=== PATIENT | female | born 1960 | race Caucasian/White ===

== ENCOUNTER → 2023-05-24 16:35 | Outpatient (REF) | payer BC, SELFPAY | LOC: WDC 16:35 | PROVIDERS: ATTENDING PHYSICIAN Physician Assistant Medical | DX: Z12.31 Encounter for screening mammogram for malignant neoplasm of breast (principal) | CPT/HCPCS: 77063; 77067 ==

== ENCOUNTER → 2023-08-17 14:49 | Outpatient (REF) | payer BC, SELFPAY | LOC: WDC 14:49 | PROVIDERS: ATTENDING PHYSICIAN Physician Assistant Medical | DX: R92.2 Inconclusive mammogram (principal) | CPT/HCPCS: 76641 ==

== ENCOUNTER → 2023-11-25 08:18 | Outpatient (REF) | payer BC, SELFPAY ==
[2023-11-25 10:14] LABS: % Basophils 1.2 % (0-2); % Eosinophils 8.4 % (0-6); % Immature Granulocytes 0.2 % (0-0.5); % Lymphocytes 32.7 % (20.5-51.1); % Monocytes 8.7 % (1.7-9.3); % Neutrophils 48.8 % (42.2-75.2); Absolute Basophils 0.1 10^3/uL (0-0.2); Absolute Eosinophils 0.5 10^3/uL (0-0.7); Absolute Lymphocytes 2.1 10^3/uL (1.2-3.4); Absolute Monocytes 0.6 10^3/uL (0.1-0.6); Absolute Neutrophils 3.2 10^3/uL (1.4-6.5); Hematocrit 41.8 % (37.0-47.0); Hemoglobin 13.8 g/dL (12.0-16.0); Mean Corpuscular Hgb 29.2 pg (27.0-31.0); Mean Corpuscular Volume 88.4 fL (81.0-99.0); Mean Platelet Volume 10.7 fL (7.4-10.4); Nucleated Red Blood Cells % 0 %; Platelet Count 303 10^3/uL (130-400); Red Blood Cell Count 4.73 10^6/uL (4.20-5.40); Red Cell Dist. Width 13.5 % (11.5-14.5); White Blood Cell Count 6.5 10^3/uL (4.8-10.8)
[2023-11-25 10:46] LABS: Glycohemoglobin (HgbA1c) 6.1 % (4.0-5.6)
[2023-11-25 10:52] LABS: TSH Reflex To Free T4 1.11 uIU/ml (0.47-4.68)
[2023-11-25 10:55] LABS: ALT (SGPT) 20 U/L (0-35); AST (SGOT) 24 U/L (14-36); Alkaline Phosphatase 63 U/L (38-126); Blood Urea Nitrogen 22 mg/dl (7-17); Calcium 10.5 mg/dl (8.4-10.2); Carbon Dioxide 28 mmol/L (22-30); Chloride 103 mmol/L (98-107); Glucose 104 mg/dl (70-99); HDL Cholesterol 68 mg/dl; LDL Cholesterol, Calculated 121 mg/dl; Potassium 4.8 mmol/L (3.5-5.1); Sodium 140 mmol/L (135-145); Total Bilirubin 0.6 mg/dl (0.2-1.3); Total Cholesterol 209 mg/dl (50-199); Total Protein 6.5 g/dl (6.3-8.2); Triglyceride 102 mg/dl (10-149); Very Low Density Lipoprotein 20 mg/dl (0-30); eGFR > 60.00
== END ==
LOC: OLAB 08:18
PROVIDERS: ATTENDING PHYSICIAN Physician Assistant Medical
DX: E78.2 Mixed hyperlipidemia (principal); I10 Essential (primary) hypertension; R73.03 Prediabetes; K21.9 Gastro-esophageal reflux disease without esophagitis
CPT/HCPCS: 36415; 80053; 80061; 83036; 84443; 85025

== ENCOUNTER 2024-05-06 22:19 | Emergency (ER) | payer BC, SELFPAY ==
[2024-05-06 22:22] VITALS: BP 164/106
[2024-05-07] MEDS: LET TOPICAL ANESTHETIC GEL 3 ML TOPICAL (00:53)
--- NOTE | 2024-05-07 01:23 | ED.SKININJ ---
HPI-Injury
General
Chief Complaint: Skin Surface Trauma
Source: patient and spouse
Exam Limitations: none
Time Seen by Provider: 05/07/24 01:03
Nursing documentation reviewed up to this point in time: agreed with
History of Present Illness-Injury
Initial Injury comments:
This is a 63-year-old woman with history of hypertension, hyperlipidemia, impaired fasting glucose who presents with laceration distal aspect of her left index digit which occurred tonight inadvertently while she was cutting fabric. She is
right-hand dominant.
She admits to moderate bleeding initially which has subsided promptly with local pressure. She denies weakness nor numbness.
Last Tdap 2017.
Past History
Past History
ED Past Medical History: Asthma, GERD, HTN, Hypercholesterolemia and Other (Impaired fasting glucose); Negative CAD, Cancer, IDDM or NIDDM
ED Past Surgical History: ; Negative Cardiac
Social History
Tobacco: Non-smoker
Personal:
Living: with family
Employment: Employed
Family History
Family History: Other (Noncontributory)
Skin Exam
Laceration
Left Lateral Distal Second Finger:
Length in cm: 1.5
Orientation: vertical
Type of Laceration: simple
Any active bleeding?: no active bleeding
Distal skin color and temperature: normal-warm & good color
Normal distal neurovascular exam: Yes
Range of motion: full
Phy Exam
Physical Exam
Physical Exam:
PHYSICAL EXAMINATION:
General: 63-year-old woman appears her stated age, bright and alert, pleasant, appears in no acute distress. is accompanying.
Neuro: alert and oriented. no focal neurological deficits
Psychiatric: well kept. interactive and cooperative
Musculoskeletal: [1.5 cm vertical slightly curved laceration distal lateral aspect of the left index digit. Wound extends to the lateral cuticle edge but does not involve the nail nor nailbed. Wound is subcutaneous in
depth. No tendon nor vasculature involvement. Sensation and strength intact. Rapid capillary refill.]
Course
Orders/Labs/Results
Orders:
Orders
05/07/24 00:50
Lidocaine/Epinephrine/Tetracai [Let Topical Anesthetic Gel] 3 ml .ROUTE .STK-MED ONE
05/07/24 00:53
Lidocaine/Epinephrine/Tetracai [Let Topical Anesthetic Gel] 3 ml TOPICAL NOW STA
05/07/24 01:20
Aluminium Finger Splint Left ONCE
Tetanus/Diphth/Acelpertussis [Adacel] 0.5 ml IM .ONCE ONE
Vital Signs
Initial and Last Documented VS:
Initial Vital Signs
Temp Pulse Resp BP Pulse Ox
98.1 F 84 20 164/106 97
05/06/24 22:22 05/06/24 22:22 05/06/24 22:22 05/06/24 22:22 05/06/24 22:22
Last Documented Vital Signs
Temp Pulse Resp BP Pulse Ox
98.1 F 84 20 164/106 97
05/06/24 22:22 05/06/24 22:22 05/06/24 22:22 05/06/24 22:22 05/06/24 22:22
Procedures
Laceration Closure
Left Lateral Distal Second Finger:
Status of Wound: clean
Size of Wound in cm: 1.5
Description of Wound Edges: sharp
Preparation: cleaned with saline
Anesthesia: Topical-LET
Revision/Debridement: routine- no revision and irrigate-direct pressure
Wound exploration: explored to base- no FB and no tendon involvement
Type of Closure: Dermabond-skin glue
Additional information:
Steri-Strip applied over wound glue.
AlumaFoam finger splint
MDM/Problems Addressed
Differential Diagnosis Includes:
Patient presents with laceration left index digit, occurring at home while cutting fabric with a machine stripper cutter.
Wound is subcu in depth without involvement in vasculature nor tendon involvement. Wound edges are well-approximated.
Wound explored to base. No foreign body. No indication for radiologic studies.
Will require Dermabond wound glue repair.
Aluminum finger splint for 3 to 4 days for wound protection/protection from flexion.
Wound care instructions discussed.
Will update Tdap.
Will place on short course of Keflex for infection prevention.
Follow-up with PCP for wound check as needed.
Chronic conditions affecting care: DM (Prediabetes)
*Pulse Oximetry
Patient hypoxic: no
*Critical Care Note
Total Time (30-74mins, 75-104mins- exclusive of procedures): Not Applicable
ED Attending Note
-
Portions of this chart may have been created with voice recognition software.� Occasional wrong word or��sound alike� substitutions may have occurred due to the inherent limitations of voice recognition software.
Discharge Plan
Departure
Patient Disposition: Home (Routine Discharge)
Date of Disposition: 05/07/24
Time of Disposition: 01:24
Patient with high blood pressure during this ER visit?: No
Condition: Good
Discharge Problem:
Laceration of left index finger
Instructions: Laceration Repair With Glue (DC)
Prescriptions:
New
cephalexin 500 mg capsule
500 mg PO TID Qty: 12 0RF
No Action
Albuterol
2 puff inhalation PRN (Reason: breathing)
verapamil [Calan SR] 120 MG tablet extended release
120 mg PO DAILY
aspirin 81 MG tablet,delayed release (DR/EC)
81 mg PO DAILY
fluticasone propion-salmeterol 1 DISK blister with device
1 puff inhalation BID
omeprazole magnesium [Prilosec OTC] 20 MG tablet,delayed release (DR/EC)
20 mg PO HS
Zocor:
5 mg PO DAILY
Referrals:
Mandie Rodriguez PA [Family Provider] - As needed
Interventions
Interventions:
*Risk Screen - Suicide Last Done: 05/07/24 00:52
*General Assessment Last Done: 05/06/24 22:22
*Neglect/Abuse Screening Last Done: 05/07/24 00:52
*ED COVID-19 Vaccine History Last Done: 05/07/24 00:52
ED-Skin Assessment Last Done: 05/07/24 00:52
Discharge Date and Time
Print Language: [id number]
[2024-05-07 01:26] VITALS: BP 139/82
[2024-05-07] MEDS: KEFLEX 500 MG PO (01:43)
[2024-05-07] MEDS: ADACEL 0.5 ML IM (01:44)
== END 2024-05-07 01:50 | disposition home or self-care (01) ==
LOC: EMR 22:19
PROVIDERS: EMERGENCY PHYSICIAN Emergency Medicine; FAMILY PHYSICIAN Physician Assistant Medical
DX: S61.211A Laceration without foreign body of left index finger without damage to nail, initial encounter (principal); W45.8XXA Other foreign body or object entering through skin, initial encounter; Z23 Encounter for immunization; I10 Essential (primary) hypertension; E78.00 Pure hypercholesterolemia, unspecified; J45.909 Unspecified asthma, uncomplicated; K21.9 Gastro-esophageal reflux disease without esophagitis
CPT/HCPCS: 99282; 29130; 90471; 90715

== ENCOUNTER → 2024-06-27 16:42 | Outpatient (REF) | payer BC, SELFPAY ==
[2024-06-27 09:10] LABS: ALT (SGPT) 21 U/L (0-35); AST (SGOT) 22 U/L (14-36); Albumin 4.1 g/dl (3.5-5.0); Alkaline Phosphatase 70 U/L (38-126); Blood Urea Nitrogen 16 mg/dl (7-17); Calcium 10.1 mg/dl (8.4-10.2); Carbon Dioxide 29 mmol/L (22-30); Chloride 104 mmol/L (98-107); Glucose 99 mg/dl (70-99); HDL Cholesterol 65 mg/dl; LDL Cholesterol, Calculated 108 mg/dl; Potassium 4.4 mmol/L (3.5-5.1); Sodium 142 mmol/L (135-145); Total Bilirubin 0.8 mg/dl (0.2-1.3); Total Cholesterol 194 mg/dl (50-199); Total Protein 6.5 g/dl (6.3-8.2); Triglyceride 107 mg/dl (10-149); Very Low Density Lipoprotein 21 mg/dl (0-30); eGFR > 60.00
== END ==
LOC: WDC 16:42
PROVIDERS: ATTENDING PHYSICIAN Physician Assistant Medical
DX: Z12.31 Encounter for screening mammogram for malignant neoplasm of breast (principal); Z00.01 Encounter for general adult medical examination with abnormal findings; I10 Essential (primary) hypertension; E78.2 Mixed hyperlipidemia; R73.03 Prediabetes
CPT/HCPCS: 36415; 77063; 77067; 80053; 80061; 83036

== ENCOUNTER → 2024-11-21 14:59 | Outpatient (REF) | payer BC, SELFPAY | LOC: WDC 14:59 | PROVIDERS: ATTENDING PHYSICIAN Physician Assistant Medical | DX: R92.30 Dense breasts, unspecified (principal) | CPT/HCPCS: 76641 ==

== ENCOUNTER → 2025-02-17 07:38 | Outpatient (REF) | payer BC, SELFPAY ==
[2025-02-17 08:30] LABS: Hematocrit 42.0 % (37.0-47.0); Hemoglobin 14.0 g/dL (12.0-16.0); Mean Corp Hgb Conc. 33.3 g/dL (33.0-37.0); Mean Corpuscular Volume 89.4 fL (81.0-99.0); Nucleated Red Blood Cells % 0 %; Platelet Count 279 10^3/uL (130-400); Red Cell Dist. Width 13.2 % (11.5-14.5)
[2025-02-17 09:00] LABS: ALT (SGPT) 18 U/L (0-35); AST (SGOT) 20 U/L (14-36); Albumin 3.9 g/dl (3.5-5.0); Alkaline Phosphatase 60 U/L (38-126); Blood Urea Nitrogen 11 mg/dl (7-17); Calcium 9.8 mg/dl (8.4-10.2); Carbon Dioxide 31 mmol/L (22-30); Chloride 106 mmol/L (98-107); Glucose 104 mg/dl (70-99); HDL Cholesterol 60 mg/dl; LDL Cholesterol, Calculated 104 mg/dl; Potassium 4.3 mmol/L (3.5-5.1); Sodium 139 mmol/L (135-145); Total Protein 6.6 g/dl (6.3-8.2); Very Low Density Lipoprotein 41 mg/dl (0-30); eGFR > 60.00
[2025-02-17 09:06] LABS: C-Reactive Protein < 5.00 mg/L (0.0-10.00)
[2025-02-17 10:04] LABS: Glycohemoglobin (HgbA1c) 6.2 % (4.0-5.9)
== END ==
LOC: REG 07:38
PROVIDERS: ATTENDING PHYSICIAN Physician Assistant Medical
DX: I10 Essential (primary) hypertension (principal); E78.2 Mixed hyperlipidemia; R73.03 Prediabetes; M62.81 Muscle weakness (generalized)
CPT/HCPCS: 36415; 73610; 80053; 80061; 82550; 83036; 84443; 85025; 85652; 86140